=== PATIENT | female | born 1945 | race Caucasian/White ===

== ENCOUNTER 2017-08-26 13:36 | Outpatient (CLI) | payer BC ==
--- NOTE | 2017-08-26 14:04 | RAD ---
FOUR VIEWS LUMBOSACRAL SPINE: Comparison: None. History: Lumbar radiculopathy that radiates down the thighs into the knees, low back pain. FINDINGS: AP, lateral, flexion, and extension views of the lumbosacral spine were performed. There is normal he ight and alignment without fracture or subluxation. Intervertebral discs are narrowed and moderate os teophytes are seen in the upper lumbar spine. Alignment is unchanged with flexion and extension. Mode rate to severe posterior facet arthrosis is seen in the lower lumbosacral spine. IMPRESSION: Moderate to severe degenerative changes of the lumbar spine with unchanged alignment with bending. POS: ALBARO
--- NOTE | 2017-08-26 14:51 | MRI ---
MRI OF THE LUMBAR SPINE: Date: 08-26-17 Comparison: None available. History: Pain from the waist down for years. Pain radiating into bilateral thighs and knees. Lumbar r adiculopathy. Technique: Multiplanar, multisequence MR imaging of the lumbar spine is provided without contrast. FINDINGS: The sagittal STIR imaging demonstrates increased signal within the pedicle on the right at the L5 lev el suggesting edema, likely degenerative in nature. There is also mild edematous degenerative endplat e change at the lumbosacral junction. Assuming five lumbar type vertebral bodies, conus medullaris terminates at the T12-L1 level. There is exaggerated lumbar lordosis. There is retrolisthesis at L2-3 measuring 6 mm. There is retrol isthesis of L3 on L4 measuring 5 mm. There is a prominent hemangioma at the T12 level. T12-L1: Conus medullaris terminates at T12-L1. There is disc space narrowing and anterior osteophyte formation with bilateral facet hypertrophy and a disc osteophyte complex. There is mild central canal stenosis. No significant neural foraminal stenosis. L1-2: Disc space narrowing, disc desiccation, anterior osteophyte formation and small disc osteophyte complex with no significant central canal stenosis. Mild bilateral facet hypertrophy. No significant neural foraminal stenosis. L2-3: Disc space narrowing and disc desiccation present with disc osteophyte complex and bilateral fa cet hypertrophy. There is moderate/severe associated central canal stenosis. There is moderate right and mild to moderate left neural foraminal stenosis. L3-4: Prominent bilateral facet hypertrophy and hypertrophy of ligamentum flavum, right greater than left. There is disc space narrowing, disc desiccation and disc bulge with mild to moderate central ca nal stenosis and a moderate degree of right lateral recess stenosis. There is moderate to severe righ t and severe left neural foraminal stenosis. L4-5: There is prominent bilateral facet hypertrophy and hypertrophy of ligamentum flavum. Interverte bral disc height appears within normal limits. No significant central canal or neural foraminal steno sis. L5-S1: There is disc space narrowing, disc desiccation, and mild disc bulge. There is mild central ca nal stenosis. There is prominent bilateral facet hypertrophy with mild to moderate bilateral neural f oraminal stenosis, left greater than right. The nerve roots of the cauda equina appear redundant and/or thickened from the level of the conus med ullaris to the axial level of the L2-3 level. This could signify arachnoiditis. This may be secondary to the degree of central canal stenosis at L2-3. There is an incompletely imaged complex heterogeneously T2 hyperintense lesion emanating from the upp er pole of the right kidney measuring at least 7.7 cm. This could represent a complex cystic mass or a solid renal mass. IMPRESSION: 1. Severe multilevel degenerative change with areas of central canal and neural foraminal stenosis as above. 2. Nerve roots of the cauda equina appear thickened from the axial level of the conus medullaris to t he axial level of the L2-3 interspace. This could be on the basis of decreased nerve root motion and redundancy on the basis of severe central canal stenosis. However, arachnoiditis or an inflammatory/i nfiltrative process involving the cauda equina is a possibility. Thus, post contrast imaging and repe at axial T2 weighted imaging through this region is advised. 3. Large heterogeneous T2 hyperintense lesion emanating from upper pole of right kidney. This may rep resent a solid renal mass. CT examination of abdomen with and without contrast using a renal mass pro tocol is advised. Dr. Sanders made aware of these findings 08-26-17 at 2:30 p.m. Code RYAN POS: ALBARO
== END 2017-08-26 13:37 | disposition home or self-care (01) ==
LOC: TBSIIMAG 13:36
PROVIDERS: ATTEND Surgery
DX: M47.26 Other spondylosis with radiculopathy, lumbar region (principal); M99.83 Other biomechanical lesions of lumbar region; G95.89 Other specified diseases of spinal cord
CPT/HCPCS: 72110; 72148